=== PATIENT | female | born 1985 ===

== ENCOUNTER 2017-05-15 01:47 | Emergency (ER) | payer SELFPAY ==
[2017-05-15 01:48] VITALS: BMI 34.3
[2017-05-15 01:59] VITALS: BP 148/85; PULSE 108; RESP 17; TEMP 101.3; O2SAT 100
--- NOTE | 2017-05-15 02:12 | ED PDOC ---
HPI: General Adult Time Seen by Provider: 05/15/17 02:10 Chief Complaint (Nursing): Flu-like Symptoms Chief Complaint (Provider): flu-like symptom History Per: Patient (31 y/o female here here with bodyache/fever x 48 hours. Denies uri/cough. Notes pain lower back and abdomen at times.) Past Medical History Reviewed: Historical Data, Nursing Documentation, Vital Signs Vital Signs: Last Vital Signs Temp 101.3 F H 05/15/17 01:57 Pulse 108 H 05/15/17 01:57 Resp 17 05/15/17 01:57 BP 148/85 05/15/17 01:57 Pulse Ox 100 05/15/17 03:43 - Medical History PMH: HTN - Surgical History Surgical History: Cholecystectomy - Family History Family History: States: Unknown Family Hx - Immunization History Hx Tetanus Toxoid Vaccination: No Hx Influenza Vaccination: No Hx Pneumococcal Vaccination: No - Home Medications Home Medications: Ambulatory Orders Medication Instructions Recorded Multivit/Folic Acid/I 1 tab PO DAILY 01/06/16 [ Plus] Vit No.126/Iron/Folic 1 tab PO DAILY 01/08/16 [Prenavite] Ibuprofen [Motrin Tab] 600 mg PO Q6H PRN #30 tab 01/16/16 oxyCODONE/Acetaminophen [Percocet 1 tab PO Q6 PRN #30 tab 01/16/16 5/325 mg Tab] Acetaminophen [Acetaminophen Extra 2 tab PO Q4 PRN #24 tablet 05/15/17 Strength] Ibuprofen [Motrin Tab] 800 mg PO Q8 PRN #21 tab 05/15/17 Oseltamivir [Tamiflu] 75 mg PO BID #9 cap 05/15/17 - Allergies Allergies/Adverse Reactions: Allergies Allergy/AdvReac Type Severity Reaction Status Date / Time No Known Allergies Allergy Verified 01/08/16 20:47 Review of Systems ROS Statement: Except As Marked, All Systems Reviewed And Found Negative Physical Exam - Reviewed Nursing Documentation Reviewed: Yes Vital Signs Reviewed: Yes - Physical Exam Appears: Positive for: Well, Non-toxic, No Acute Distress Head Exam: Positive for: ATRAUMATIC, NORMAL INSPECTION, NORMOCEPHALIC Skin: Positive for: Normal Color, Warm, DRY Eye Exam: Positive for: EOMI, Normal appearance, PERRL ENT: Positive for: Normal ENT Inspection Neck: Positive for: Normal, Painless ROM Cardiovascular/Chest: Positive for: Regular Rate, Rhythm Respiratory: Positive for: CNT, Normal Breath Sounds Gastrointestinal/Abdominal: Positive for: Normal Exam, Bowel Sounds, Soft Back: Positive for: Normal Inspection Extremity: Positive for: Normal ROM Neurologic/Psych: Positive for: Alert, Oriented - Laboratory Results Urine POC: Negative Urine dip results: Positive for: Blood. Negative for: Leukocyte Esterase, Nitrate, Ketones, Glucose, Bilirubin - ECG O2 Sat by Pulse Oximetry: 100 - Progress ED Course And Treament: MOTRIN 800 MG X 1 DOSE TAMIFLU 75 MG X 1 DOSE ACETAMINOPHEN 975 MG X 1 DOSE Disposition - Clinical Impression Clinical Impression: Influenza - Patient ED Disposition Is Patient to be Admitted: No - Disposition Disposition: Routine/Home Disposition Time: 16:00 Condition: FAIR Prescriptions: Acetaminophen [Acetaminophen Extra Strength] 2 tab PO Q4 PRN #24 tablet PRN Reason: Fever >100.4 F Ibuprofen [Motrin Tab] 800 mg PO Q8 PRN #21 tab PRN Reason: Fever >100.4 F Oseltamivir [Tamiflu] 75 mg PO BID #9 cap Instructions: Influenza (ED) Forms: [employer] (Czech), [facility] ED School/Work Excuse Print Language: KOREAN
== END 2017-05-15 04:23 | disposition home or self-care (01) ==
LOC: H.ER 01:47
DX: J11.1 Influenza due to unidentified influenza virus with other respiratory manifestations (principal); I10 Essential (primary) hypertension

== ENCOUNTER 2018-05-03 21:28 | Emergency (ER) | payer SELFPAY ==
[2018-05-03 21:29] VITALS: BMI 34.3
[2018-05-03 21:36] VITALS: RESP 18
[2018-05-03] MEDS ORDERED: Sodium Chloride 0.9% 1,000 ML IV ONE (22:03)
--- NOTE | 2018-05-03 22:34 | ED PDOC ---
HPI: Female Pain Time Seen by Provider: 05/03/18 21:38 Chief Complaint (Nursing): Female Genitourinary Chief Complaint (Provider): Female Genitourinary History Per: Patient, Psych Coordinator (Maranda #[id number]) History/Exam Limitations: no limitations Onset/Duration Of Symptoms: Days (x 3) Current Symptoms Are (Timing): Still Present Quality Of Discomfort: "Pain" Additional Complaint(s): 32 year old female with no significant medical history presents to the ED for evaluation of right sided flank pain radiating to right lower quadrant and right groin for the last three days. Patient also complains of dysuria, hematuria and urinary frequency. She states that she does have a history of UTIs but has never experienced flank pain with UTIs before. No history of kidney stones. Patient last took Tylenol this morning with no relief. Denies fever, nausea, vomiting, diarrhea, sick contacts and bloody stool. PMD: none provided Last Menstral Period: 04/15/2018 Past Medical History Reviewed: Historical Data, Nursing Documentation, Vital Signs Vital Signs: Last Vital Signs Temp 98.2 F 05/03/18 21:33 Pulse 82 05/03/18 21:33 Resp 18 05/03/18 21:33 BP 137/89 05/03/18 21:33 Pulse Ox 99 05/03/18 21:33 - Medical History PMH: HTN - Surgical History Surgical History: Cholecystectomy, - Family History Family History: States: Unknown Family Hx - Social History Current smoker - smoking cessation education provided: No Alcohol: None Drugs: Denies - Home Medications Home Medications: Ambulatory Orders Medication Instructions Recorded Multivit/Folic Acid/I 1 tab PO DAILY 01/06/16 [ Plus] Vit No.126/Iron/Folic 1 tab PO DAILY 01/08/16 [Prenavite] RX: Ibuprofen [Motrin Tab] 600 mg PO Q6H PRN #30 tab 01/16/16 RX: oxyCODONE/Acetaminophen 1 tab PO Q6 PRN #30 tab 01/16/16 [Percocet 5/325 mg Tab] Acetaminophen [Acetaminophen Extra 2 tab PO Q4 PRN #24 tablet 05/15/17 Strength] Ibuprofen [Motrin Tab] 800 mg PO Q8 PRN #21 tab 05/15/17 Oseltamivir Cap [Tamiflu] 75 mg PO BID #9 cap 05/15/17 Acetaminophen [Acetaminophen 8 650 mg PO Q8 PRN #21 tablet.er 05/04/18 Hour] Cefdinir [Omnicef] 300 mg PO BID #14 cap 05/04/18 Phenazopyridine [Pyridium] 200 mg PO BID PRN #4 tab 05/04/18 RX: Naproxen 500 mg PO BID PRN #20 tab 05/04/18 - Allergies Allergies/Adverse Reactions: Allergies Allergy/AdvReac Type Severity Reaction Status Date / Time No Known Allergies Allergy Verified 01/08/16 20:47 Review of Systems ROS Statement: Except As Marked, All Systems Reviewed And Found Negative Constitutional: Negative for: Fever Gastrointestinal: Positive for: Abdominal Pain (right flank pain and RLQ pain). Negative for: Nausea, Vomiting, Diarrhea, Hematochezia Genitourinary Female: Positive for: Dysuria, Frequency, Hematuria Musculoskeletal: Positive for: Leg Pain (flank pain radiating to right leg/groin) Physical Exam - Reviewed Nursing Documentation Reviewed: Yes Vital Signs Reviewed: Yes - Physical Exam Comments: GENERAL APPEARANCE: Patient is awake, alert, oriented x 3; comfortable, in no acute distress. SKIN: Warm, dry; (-) cyanosis. EYES: (-) conjunctival pallor. ENMT: Mucous membranes moist. Airway patent: (-) stridor. NECK: Supple, FROM CHEST AND RESPIRATORY: (-) wheezing; (-) rales, (-) rhonchi, (-) rub; breath sounds equal bilaterally. Respirations nonlabored. HEART AND CARDIOVASCULAR: (-) irregularity ABDOMEN AND GI: Soft; (+) mild RLQ tenderness (-) guarding (-)distention (-) rigidity (?) Right CVA tenderness (-) palpable mass BACK: (+) right flank tenderness, (-) midline tenderness EXTREMITIES: (-) deformity, (-) edema. NEURO AND PSYCH: Mental status as above; (-) focal findings. Gait: steady. Speech: clear. (-) facial asymmetry (-) aphasia - Laboratory Results Result Diagrams: 05/03/18 22:18 05/03/18 22:18 Urine POC: Negative - ECG O2 Sat by Pulse Oximetry: 99 (RA) Pulse Ox Interpretation: Normal Medical Decision Making Medical Decision Makin:40 Impression: abdominal/flank pain, UTI vs pyelonephritis Initial Plan: --CMP --CBC --Urine preg --NS IV --Pyridium 200 mg PO --Toradol 30 mg PO --Urine cx --UA 2320 CBC and CMP unremarkable. U/A (+) UTI Rocephin 1gm IVPB ordered. 0025 On re-evaluation, patient reports improvement of symptoms. On exam, patient remains AAOx3, in no acute distress. Vitals stable. Lab / Diagnostic results d/w the patient in great detail. Diagnosis of abdominal/flank pain, UTI d/w the patient. Based on history, exam and diagnostic results, plan will be for outpatient follow up with PMD/clinic. Patient instructed to follow-up with pmd / referral provided / the clinic in 1- 2 days without fail. Advised to take medication as prescribed. Return to the emergency room at any time for any new or worsening symptoms. Patient states she fully agrees with and understands discharge instructions. States that she agrees with the plan and disposition. Verbalized and repeated discharge instructions and plan. I have given the patient opportunity to ask any additional questions. Scribe Attestation: Documented by Earlene Lau acting as a scribe for Gertrude Angelo PA-C Provider Scribe Attestation: All medical record entries made by the Scribe were at my direction and personally dictated by me. I have reviewed the chart and agree that the record accurately reflects my personal performance of the history, physical exam, medical decision making, and the department course for this patient. I have also personally directed, reviewed, and agree with the discharge instructions and disposition. Disposition - Clinical Impression Clinical Impression: Urinary tract infection, Abdominal pain, Flank pain - Patient ED Disposition Is Patient to be Admitted: No Counseled Patient/Family Regarding: Studies Performed, Diagnosis, Need For Followup, Rx Given - Disposition Referrals: [facility] [Outside] Disposition: Routine/Home Disposition Time: 00:25 Condition: STABLE Additional Instructions: La atencin mdica de emergencia que recibi hoy se dirigi a julio sntomas agud os. Si le recetaron algn medicamento, llnelo y tmelo segn las indicaciones. Los sntomas pueden tardar varios holloway en resolverse. Regrese al Departamento de Emergencias si julio sntomas empeoran, no mejoran o si tiene otros problemas. Comunquese con mcghee mdico dentro de 2 holloway para tamela nueva evaluacin y marguerite un seguimiento o llame a tima de los mdicos / clnicas a los que rivera sido referido y que figuran en el formulario de Informacin de visita al paciente que se incluye en mcghee paquete de dawn. Lleve todos los documentos que le entregaron al momento del dawn junto con todos los medicamentos que est tomando para mcghee visita de seguimiento. Nuestro tratamiento no puede reemplazar la atencin mdica continua por parte de un proveedor de atencin primaria (PCP) fuera del departamento de emergencias. Prescriptions: Acetaminophen [Acetaminophen 8 Hour] 650 mg PO Q8 PRN #21 tablet.er PRN Reason: fever/pain Cefdinir [Omnicef] 300 mg PO BID #14 cap RX: Naproxen 500 mg PO BID PRN #20 tab PRN Reason: Pain, Moderate (4-7) Phenazopyridine [Pyridium] 200 mg PO BID PRN #4 tab PRN Reason: urinary discomfort Instructions: Urinary Tract Infections in Adults, Flank Pain, Acute Abdomen (Belly Pain), Adult (DC), Kidney Infection (DC) Forms: [employer] ([place] Citizen) Print Language: GEORGIAN - POA Present On Arrival: None Results - Lab Results Lab Results: 05/03/18 05/03/18 05/03/18 22:18 22:18 22:18 WBC 8.7 RBC 4.04 Hgb 12.2 Hct 35.5 MCV 87.9 MCH 30.1 MCHC 34.2 RDW 13.5 Plt Count 286 MPV 8.7 Neut % (Auto) 60.7 Lymph % (Auto) 30.8 Pettis % (Auto) 4.8 Eos % (Auto) 3.1 Baso % (Auto) 0.6 Neut # (Auto) 5.3 Lymph # (Auto) 2.7 Pettis # (Auto) 0.4 Eos # (Auto) 0.3 Baso # (Auto) 0.0 Sodium 137 Potassium 3.8 Chloride 104 Carbon Dioxide 22 Anion Gap 15 BUN 16 Creatinine 0.4 L Est GFR ( Amer) > 60 Est GFR (Non-Af Amer) > 60 Random Glucose 96 Calcium 9.4 Total Bilirubin 0.2 AST 18 ALT 14 Alkaline Phosphatase 59 Total Protein 8.0 Albumin 4.5 Globulin 3.5 Albumin/Globulin Ratio 1.3 Urine Color Yellow Urine Clarity Slighty-cloudy Urine pH 6.0 Ur Specific [place] 1.018 Urine Protein Negative Urine Glucose (UA) Neg Urine Ketones Negative Urine Blood Small Urine Nitrate Negative Urine Bilirubin Negative Urine Urobilinogen 0.2-1.0 Ur Leukocyte Esterase Small Urine RBC (Auto) 6 H Urine Microscopic WBC 12 H Ur Squamous Epith Cells 6 H Urine Bacteria Occ H
[2018-05-03 22:56] LABS: BASO % 0.6 % (0.0-2.0); EOS # 0.3 K/uL (0.0-0.7); EOS % 3.1 % (0.0-4.0); HEMOGLOBIN 12.2 g/dL (12.0-16.0); LYMPH # 2.7 K/uL (1.0-4.3); LYMPH % 30.8 % (20.0-40.0); MEAN CELL VOLUME 87.9 fl (81.0-99.0); MEAN CORPUSCULAR HEMOGLOBIN 30.1 pg (27.0-31.0); MEAN CORPUSCULAR HGB CONC 34.2 g/dL (33.0-37.0); MEAN PLATELET VOLUME 8.7 fl (7.2-11.7); MONO # 0.4 K/uL (0.0-0.8); MONO % 4.8 % (0.0-10.0); NEUT # 5.3 K/uL (1.8-7.0); NEUT % 60.7 % (50.0-75.0); NRBC % 0.1 % (0.0-0.0); RBC 4.04 Mil/uL (3.80-5.20); RED CELL DISTRIBUTION WIDTH 13.5 % (11.5-14.5); WHITE BLOOD COUNT 8.7 K/uL (4.8-10.8)
[2018-05-03 23:06] LABS: ALB/GLOB RATIO 1.3 (1.0-2.1); ALBUMIN 4.5 g/dL (3.5-5.0); ALT/SGPT 14 U/L (9-52); AST/SGOT 18 U/L (14-36); BLOOD UREA NITROGEN 16 mg/dl (7-17); CALCIUM 9.4 mg/dL (8.4-10.2); GFR NON-AFRICAN AMERICAN > 60
[2018-05-03 23:10] LABS: SQUAMOUS EPITHIAL 6 /hpf (0-5); URINE BACTERIA OCC (<OCC); URINE BILIRUBIN NEGATIVE (NEGATIVE); URINE BLOOD SMALL (NEGATIVE); URINE CLARITY SLIGHTY-CLOUDY (Clear); URINE COLOR YELLOW (YELLOW); URINE GLUCOSE (UA) NEG (NEGATIVE); URINE LEUKOCYTE ESTERASE SMALL Leu/uL (Negative); URINE PROTEIN NEGATIVE (NEGATIVE); URINE UROBILINOGEN 0.2-1.0 mg/dL (0.2-1.0)
[2018-05-04] MEDS ORDERED: cefTRIAXone (Rocephin) 1 gm Inj ONE (00:16)
[2018-05-04 01:39] VITALS: BP 122/78; PULSE 86; TEMP 98.7
[2018-05-06 23:41] VITALS: O2SAT 99
== END 2018-05-04 01:37 | disposition home or self-care (01) ==
LOC: H.ER 21:28
DX: N39.0 Urinary tract infection, site not specified (principal); R10.31 Right lower quadrant pain
CPT/HCPCS: 80053; 81003; 81025; 85025; 87086; 96360; 96361; 96374; 96375; 99283; J0696; J1885; J7030

== ENCOUNTER 2018-06-29 01:30 | Emergency (ER) | payer OTHER ==
[2018-06-29 02:31] VITALS: BMI 34.0
[2018-06-29 02:40] VITALS: BP 150/99; PULSE 76; RESP 16; TEMP 98.2; O2SAT 99
[2018-06-29] MEDS ORDERED: Naproxen 500 MG TAB PO ONE ×2 (02:42→03:18)
--- NOTE | 2018-06-29 03:16 | ED PDOC ---
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 She states that for the past 2 days she has developed progressively worsening left ear ache. Patient reports she used over the counter ear drops. She denies fever, chest pain, shortness of breath, hemoptysis, sick contact, or recent travel. She reports feeling as if her left ear is clogged but denies any ringing. She denies history of diabetes. Past Medical History Reviewed: Historical Data, Nursing Documentation, Vital Signs Vital Signs: Last Vital Signs Temp 98.2 F 06/29/18 02:31 Pulse 76 06/29/18 02:31 Resp 16 06/29/18 02:31 BP 150/99 H 06/29/18 02:31 Pulse Ox 99 06/29/18 02:31 - Medical History PMH: HTN - Surgical History Surgical History: Cholecystectomy, - Family History Family History: States: Unknown Family Hx - Immunization History Hx Tetanus Toxoid Vaccination: No Hx Influenza Vaccination: No Hx Pneumococcal Vaccination: No - Home Medications Home Medications: Ambulatory Orders Medication Instructions Recorded Multivit/Folic Acid/I 1 tab PO DAILY 01/06/16 [ Plus] Vit No.126/Iron/Folic 1 tab PO DAILY 01/08/16 [Prenavite] Ibuprofen [Motrin Tab] 600 mg PO Q6H PRN #30 tab 01/16/16 oxyCODONE/Acetaminophen [Percocet 1 tab PO Q6 PRN #30 tab 01/16/16 5/325 mg Tab] Acetaminophen [Acetaminophen Extra 2 tab PO Q4 PRN #24 tablet 05/15/17 Strength] Ibuprofen [Motrin Tab] 800 mg PO Q8 PRN #21 tab 05/15/17 Oseltamivir Cap [Tamiflu] 75 mg PO BID #9 cap 05/15/17 Acetaminophen [Acetaminophen 8 650 mg PO Q8 PRN #21 tablet.er 05/04/18 Hour] Cefdinir [Omnicef] 300 mg PO BID #14 cap 05/04/18 Naproxen 500 mg PO BID PRN #20 tab 05/04/18 Phenazopyridine [Pyridium] 200 mg PO BID PRN #4 tab 05/04/18 Amoxicillin 875 mg PO BID #20 tablet 06/29/18 Naproxen [Naprosyn] 500 mg PO BID PRN #10 tab 06/29/18 Neomycin/Polymyxin/Hydrocortis 3 drop TID #1 bottle 06/29/18 [Cortisporin Otic Susp] - Allergies Allergies/Adverse Reactions: Allergies Allergy/AdvReac Type Severity Reaction Status Date / Time No Known Allergies Allergy Verified 01/08/16 20:47 Review of Systems ROS Statement: Except As Marked, All Systems Reviewed And Found Negative Constitutional: Negative for: Fever ENT: Positive for: Ear Pain, Nose Congestion, Throat Pain Cardiovascular: Negative for: Chest Pain Respiratory: Positive for: Cough. Negative for: Shortness of Breath, Hemoptysis Physical Exam - Reviewed Nursing Documentation Reviewed: Yes Vital Signs Reviewed: Yes - Physical Exam Appears: Positive for: No Acute Distress Head Exam: Positive for: ATRAUMATIC, NORMAL INSPECTION, NORMOCEPHALIC Skin: Positive for: Normal Color, Warm, DRY Eye Exam: Positive for: EOMI, Normal appearance, PERRL ENT: Positive for: TM Is/Are (Left TM is erythematous and non-bulging; Right TM is non-erythematous and non-bulging). Negative for: Normal ENT Inspection (Left ear canal has moderate erythema and there is pain with pulling on left tragus; Right ear canal normal), Pharyngeal Erythema, Tonsillar Exudate, Tonsillar Swelling, Other (ear swelling; trismus; difficulty with swallowing saliva) Cardiovascular/Chest: Positive for: Regular Rate, Rhythm. Negative for: Murmur Respiratory: Positive for: Normal Breath Sounds. Negative for: Respiratory Distress Neurological/Psych: Positive for: Awake, Alert, Normal Tone, Oriented (x3). Negative for: Motor/Sensory Deficits - ECG O2 Sat by Pulse Oximetry: 99 (RA) Pulse Ox Interpretation: Normal Medical Decision Making Medical Decision Making: Time: 02:42 Impression: ear pain Initial plan: * Throat culture * Naproxen 500 mg Scribe Attestation: Documented by Matthew Self, acting as a scribe for Tameka Sanders PA-C Provider Scribe Attestation: All medical record entries made by the Scribe were at my direction and personally dictated by me. I have reviewed the chart and agree that the record accurately reflects my personal performance of the history, physical exam, medical decision making, and the department course for this patient. I have also personally directed, reviewed, and agree with the discharge instructions and disposition. Disposition - Clinical Impression Clinical Impression: Otitis media, Otitis externa - Patient ED Disposition Is Patient to be Admitted: No - Disposition Referrals: [facility] [Outside] Disposition: Routine/Home Disposition Time: 02:40 Condition: IMPROVED Additional Instructions: FOLLOW UP WITH YOUR DOCTOR FOR FURTHER EVALUATION RETURN TO ED IMMEDIATELY IF SYMPTOMS WORSEN ADRYAN GUZMAN, thank you for letting us take care of you today. Your provider was Vladislav Hernandez MD and you were treated for EAR AND THROAT PAIN. The emergency medical care you received today was directed at your acute symptoms. If you were prescribed any medication, please fill it and take as directed. It may take several days for your symptoms to resolve. Return to the Emergency Department if your symptoms worsen, do not improve, or if you have any other problems. Please contact your doctor or call one of the physicians/clinics you have been referred to that are listed on the Patient Visit Information form that is included in your discharge packet. Bring any paperwork you were given at discharge with you along with any medications you are taking to your follow up visit. Our treatment cannot replace ongoing medical care by a primary care provider outside of the emergency department. Thank you for allowing the [facility] team to be part of your care today. If you had an X-Ray or CT scan: A Radiologist will review the ED reading if any change in treatment is needed we will contact you. If you had a blood, urine, or wound culture: It will take several days for the results, if any change in treatment is needed we will contact you. If you had an STI test: It will take 48 hours for the results. Please call after 1 week if you have not heard back. Prescriptions: Amoxicillin 875 mg PO BID #20 tablet Naproxen [Naprosyn] 500 mg PO BID PRN #10 tab PRN Reason: Pain Neomycin/Polymyxin/Hydrocortis [Cortisporin Otic Susp] 3 drop TID #1 bottle Instructions: Ear Infections (Otitis Media) (DC), Outer Ear Infection (DC) Print Language: SAMI
== END 2018-06-29 03:20 | disposition home or self-care (01) ==
LOC: H.ER 01:30
DX: H66.90 Otitis media, unspecified, unspecified ear (principal); H60.90 Unspecified otitis externa, unspecified ear; I10 Essential (primary) hypertension

== ENCOUNTER 2018-07-29 18:18 | Emergency (ER) | payer OTHER ==
[2018-07-29 18:20] VITALS: BMI 34.0
--- NOTE | 2018-07-29 20:23 | ED PDOC ---
HPI: Abdomen Time Seen by Provider: 07/29/18 20:10 Chief Complaint (Nursing): Abdominal Pain Chief Complaint (Provider): : abdominal pain History Per: Patient History/Exam Limitations: no limitations Onset/Duration Of Symptoms: Days (2) Current Symptoms Are (Timing): Still Present Location Of Pain/Discomfort: RLQ, Suprapubic Quality Of Discomfort: "Pain" Associated Symptoms: Back Pain Additional Complaint(s): 32 y/o female, approximately 5 weeks , presents for evaluation of right lower back pain x 2 days. Patient states she was doing a lot of house cleaning yesterday and pain started after that; states it radiates to her right buttock and down back of right upper leg. Pain worse when bending forward. Patient also reports lower abdominal pain today with 3 episodes of diarrhea. Denies fever, vomiting, cough, congestion, chest pain, shortness of breath, palpitations, vaginal bleeding/discharge, urinary symptoms. Past Medical History Reviewed: Historical Data, Nursing Documentation, Vital Signs Vital Signs: Last Vital Signs Temp 98.0 F 07/29/18 18:39 Pulse 84 07/29/18 18:39 Resp 19 07/29/18 18:39 BP 140/84 07/29/18 18:39 Pulse Ox 100 07/29/18 18:39 - Medical History PMH: HTN - Surgical History Surgical History: Cholecystectomy, - Family History Family History: States: Unknown Family Hx - Immunization History Hx Tetanus Toxoid Vaccination: No Hx Influenza Vaccination: No Hx Pneumococcal Vaccination: No - Home Medications Home Medications: Ambulatory Orders Medication Instructions Recorded Multivit/Folic Acid/I 1 tab PO DAILY 01/06/16 [ Plus] Vit No.126/Iron/Folic 1 tab PO DAILY 01/08/16 [Prenavite] Ibuprofen [Motrin Tab] 600 mg PO Q6H PRN #30 tab 01/16/16 oxyCODONE/Acetaminophen [Percocet 1 tab PO Q6 PRN #30 tab 01/16/16 5/325 mg Tab] Acetaminophen [Acetaminophen Extra 2 tab PO Q4 PRN #24 tablet 05/15/17 Strength] Ibuprofen [Motrin Tab] 800 mg PO Q8 PRN #21 tab 05/15/17 Oseltamivir Cap [Tamiflu] 75 mg PO BID #9 cap 05/15/17 Acetaminophen [Acetaminophen 8 650 mg PO Q8 PRN #21 tablet.er 05/04/18 Hour] Cefdinir [Omnicef] 300 mg PO BID #14 cap 05/04/18 Naproxen 500 mg PO BID PRN #20 tab 05/04/18 Phenazopyridine [Pyridium] 200 mg PO BID PRN #4 tab 05/04/18 Amoxicillin 875 mg PO BID #20 tablet 06/29/18 Naproxen [Naprosyn] 500 mg PO BID PRN #10 tab 06/29/18 Neomycin/Polymyxin/Hydrocortis 3 drop TID #1 bottle 06/29/18 [Cortisporin Otic Susp] - Allergies Allergies/Adverse Reactions: Allergies Allergy/AdvReac Type Severity Reaction Status Date / Time No Known Allergies Allergy Verified 01/08/16 20:47 Review of Systems ROS Statement: Except As Marked, All Systems Reviewed And Found Negative Gastrointestinal: Positive for: Abdominal Pain Musculoskeletal: Positive for: Back Pain Physical Exam - Reviewed Nursing Documentation Reviewed: Yes Vital Signs Reviewed: Yes - Physical Exam Appears: Positive for: Well, Non-toxic, No Acute Distress Head Exam: Positive for: ATRAUMATIC, NORMAL INSPECTION, NORMOCEPHALIC Skin: Positive for: Normal Color Eye Exam: Positive for: Normal appearance ENT: Positive for: Normal ENT Inspection Cardiovascular/Chest: Positive for: Regular Rate, Rhythm Respiratory: Positive for: Normal Breath Sounds Gastrointestinal/Abdominal: Positive for: Bowel Sounds, Soft, Tenderness (suprapubic, RLQ) Back: Positive for: Muscle Spasm (right lspine paravertebral tenderness, right gluteal tenderness). Negative for: L CVA Tenderness, R CVA Tenderness, Vertebral Tenderness, Decreased ROM Extremity: Positive for: Normal ROM Neurological/Psych: Positive for: Awake, Alert, Oriented (x3) - Laboratory Results Result Diagrams: 07/29/18 20:52 07/29/18 23:00 Urine POC: Positive Urine dip results: Negative for: Leukocyte Esterase - ECG O2 Sat by Pulse Oximetry: 100 - Progress ED Course And Treament: -upreg -udip -cbc -cmp -beta hcg -OB TV u/s History , rt side pain. Comparison None available. Findings Uterus Single live intrauterine gestation. CRL equivalent to 6 wks/0 days gestation Gestational sac diameter equivalent to 6 wks/1 day gestation Heart rate: 116 bpm. Uterus measures 8.8 x 5.3 x 7.6 cm. No mass. Cervix Hypoechoic focus is seen in the cervical area possibly a fibroid measuring 1.3 x 0.6 x 1 cm. Right Ovary Measures 1.9 x 0.8 x 1.8 cm. No mass. Normal flow. Left Ovary Measures 3.3 x 2.5 x 3.3 cm. No mass. Normal flow. Corpus luteal cyst measures 2 x 1.8 x 2.2 cm. Free Fluid None. Other Findings None. Impression 1. Single live intrauterine gestation. 2. Possible cervical fibroid. 3. Left ovarian corpus luteal cyst Patient reports improvement of symptoms on re-eval Patient educated on findings, discharged with instructions to follow up with leach tank tender within 2-3 days Advised Tylenol PRN pain Return precautions given Disposition - Clinical Impression Clinical Impression: Abdominal pain during , Low back pain, Left ovarian cyst, Fibroid - Patient ED Disposition Is Patient to be Admitted: No Counseled Patient/Family Regarding: Studies Performed, Diagnosis, Need For Followup, Rx Given - [facility]position [facility] Disposition: Routine/Home Disposition Time: 23:33 Condition: IMPROVED Instructions: Stomach Pain in Early , Low Back Pain in Adults, Sciatica, Ovarian Cysts, Uterine Fibroids Print Language: BENGALI
[2018-07-29 20:58] LABS: BASO % 0.3 % (0.0-2.0); EOS # 0.1 K/uL (0.0-0.7); EOS % 1.2 % (0.0-4.0); HEMOGLOBIN 11.8 g/dL (12.0-16.0); LYMPH # 2.5 K/uL (1.0-4.3); LYMPH % 34.6 % (20.0-40.0); MEAN CELL VOLUME 86.8 fl (81.0-99.0); MEAN CORPUSCULAR HEMOGLOBIN 28.8 pg (27.0-31.0); MEAN CORPUSCULAR HGB CONC 33.2 g/dL (33.0-37.0); MEAN PLATELET VOLUME 8.2 fl (7.2-11.7); MONO # 0.5 K/uL (0.0-0.8); MONO % 7.1 % (0.0-10.0); NEUT # 4.1 K/uL (1.8-7.0); NEUT % 56.8 % (50.0-75.0); NRBC % 0.1 % (0.0-0.0); RBC 4.11 Mil/uL (3.80-5.20); RED CELL DISTRIBUTION WIDTH 13.5 % (11.5-14.5); WHITE BLOOD COUNT 7.2 K/uL (4.8-10.8)
[2018-07-29 21:47] LABS: SQUAMOUS EPITHIAL 1 /hpf (0-5); URINE AMORPHOUS SEDIMENT RARE /ul (<OCC); URINE BILIRUBIN NEGATIVE (NEGATIVE); URINE BLOOD NEGATIVE (NEGATIVE); URINE CLARITY SLIGHTY-CLOUDY (Clear); URINE COLOR YELLOW (YELLOW); URINE GLUCOSE (UA) NEG (NEGATIVE); URINE LEUKOCYTE ESTERASE NEG Leu/uL (Negative); URINE PROTEIN NEGATIVE (NEGATIVE); URINE UROBILINOGEN 0.2-1.0 mg/dL (0.2-1.0)
[2018-07-29 23:11] LABS: ALB/GLOB RATIO 1.3 (1.0-2.1); ALBUMIN 4.4 g/dL (3.5-5.0); ALT/SGPT 22 U/L (9-52); AST/SGOT 53 U/L (14-36); BLOOD UREA NITROGEN 14 mg/dl (7-17); CALCIUM 9.6 mg/dL (8.4-10.2); GFR NON-AFRICAN AMERICAN > 60
[2018-07-29 23:49] VITALS: BP 123/71; PULSE 77; RESP 16; O2SAT 99
[2018-07-29 23:56] VITALS: TEMP 98.2
--- NOTE | 2018-07-30 12:22 | US ---
Date of service: 07/29/2018 PROCEDURE: OB Pelvic Ultrasound HISTORY: ; pelvic pain 06/15/2018 COMPARISON: None available. FINDINGS: UTERUS: Gestational sac: Sac diameter 17 mm equal to 6 weeks 1 day gestational age. [place]-rump length 3 mm equivalent to 6 weeks 0 days gestational age. Heart rate: 116 bpm. age (Ultrasound estimated): 6 weeks 1 day [place]-gestational hemorrhage: None. Date of delivery (Ultrasound estimated) : 03/23/2019 Uterus measures 8.8 x 5.3 x 7.6 cm. Normal in size and appearance. CERVIX: Measures 3.9 cm. Long and closed. Cervical myoma versus complex nabothian cyst in the cervix, 1.8 x 2.0 x 2.2 cm.. RIGHT OVARY: Measures 0.8 x 1.8 x 1.9 cm. No mass lesion. Normal flow. LEFT OVARY: Measures 2.5 x 3.3 x 3.3 cm. No solid mass. Normal flow. Corpus luteum cyst, 1.8 x 2.0 x 2.2 cm. FREE FLUID: None. OTHER FINDINGS: None. IMPRESSION: Single live intrauterine gestation of approximately 6 weeks 1 day gestational age. ILSA 03/23/2019. heart rate 116 beats per minute. Small cervical myoma versus complex nabothian cyst of the cervix. Left ovarian corpus luteum. The preliminary findings for this examination were reported by [facility] at 10:03 p.m. on 07/29/2018. There is concurrence of this report with the preliminary findings.
== END 2018-07-29 23:58 | disposition home or self-care (01) ==
LOC: H.ER 18:18 → SUPCPDRO 18:18 → H.ER 23:58
DX: O26.891 Other specified pregnancy related conditions, first trimester (principal); O34.80 Maternal care for other abnormalities of pelvic organs, unspecified trimester; N83.202 Unspecified ovarian cyst, left side; O34.10 Maternal care for benign tumor of corpus uteri, unspecified trimester; O16.1 Unspecified maternal hypertension, first trimester; Z3A.01 Less than 8 weeks gestation of pregnancy

== ENCOUNTER 2018-09-06 13:11 | Emergency (ER) | payer SELFPAY ==
[2018-09-06 13:12] VITALS: BMI 34.0
[2018-09-06] MEDS ORDERED: Sodium Chloride 0.9% 1,000 ML IV STA (14:34)
[2018-09-06] MEDS ORDERED: Alum-Mag Hydrox-Simethicone Susp (30 mL) PO ONE (14:37)
--- NOTE | 2018-09-06 14:55 | ED PDOC ---
HPI: Abdomen Time Seen by Provider: 09/06/18 13:26 Chief Complaint (Nursing): Abdominal Pain Chief Complaint (Provider): abdominal pain History Per: Patient History/Exam Limitations: no limitations Additional Complaint(s): 32 y/o Female with hx of cholecystectomy who is currently 11 weeks and who presents with abdominal pain. Pt states that she has been having Right lower back pain that radiates to her Right lower abdomen and down her Right leg for the past several weeks that has been intermittent. She last took Tylenol 650mg at 8am this morning with minimal improvement. She has also been having epigastric pain for the past several weeks that worsened yesterday and has had 3 bouts of N/V since this morning. Denies fever, chills, diarrhea. She has been concerned that she has not felt her baby move yet. Denies dysuria, urinary frequency, vaginal bleeding or discharge. Past Medical History Reviewed: Historical Data, Nursing Documentation, Vital Signs Vital Signs: Last Vital Signs Temp 98.2 F 09/06/18 14:00 Pulse 90 09/06/18 14:00 Resp 20 09/06/18 14:00 BP 129/80 09/06/18 14:00 Pulse Ox 98 09/06/18 14:00 Primary Care Provider: FAMILY PROVIDER,NO - Medical History PMH: HTN - Surgical History Surgical History: Cholecystectomy, - Family History Family History: States: Unknown Family Hx - Immunization History Hx Tetanus Toxoid Vaccination: No Hx Influenza Vaccination: No Hx Pneumococcal Vaccination: No - Home Medications Home Medications: Ambulatory Orders Medication Instructions Recorded Multivit/Folic Acid/I 1 tab PO DAILY 01/06/16 [ Plus] Vit No.126/Iron/Folic 1 tab PO DAILY 01/08/16 [Prenavite] Ibuprofen [Motrin Tab] 600 mg PO Q6H PRN #30 tab 01/16/16 oxyCODONE/Acetaminophen [Percocet 1 tab PO Q6 PRN #30 tab 01/16/16 5/325 mg Tab] Acetaminophen [Acetaminophen Extra 2 tab PO Q4 PRN #24 tablet 05/15/17 Strength] Ibuprofen [Motrin Tab] 800 mg PO Q8 PRN #21 tab 05/15/17 Oseltamivir Cap [Tamiflu] 75 mg PO BID #9 cap 05/15/17 Acetaminophen [Acetaminophen 8 650 mg PO Q8 PRN #21 tablet.er 05/04/18 Hour] Cefdinir [Omnicef] 300 mg PO BID #14 cap 05/04/18 Naproxen 500 mg PO BID PRN #20 tab 05/04/18 Phenazopyridine [Pyridium] 200 mg PO BID PRN #4 tab 05/04/18 Amoxicillin 875 mg PO BID #20 tablet 06/29/18 Naproxen [Naprosyn] 500 mg PO BID PRN #10 tab 06/29/18 Neomycin/Polymyxin/Hydrocortis 3 drop TID #1 bottle 06/29/18 [Cortisporin Otic Susp] Calcium Carbonate [Tums] 2 tab PO Q4H PRN 14 Days ctb 09/06/18 Hydrocortisone 1% Cream [Cortizone 1 appl TP BID PRN #1 tube 09/06/18 1% Cream] - Allergies Allergies/Adverse Reactions: Allergies Allergy/AdvReac Type Severity Reaction Status Date / Time No Known Allergies Allergy Verified 01/08/16 20:47 Review of Systems Constitutional: Negative for: Fever, Chills Gastrointestinal: Positive for: Nausea, Vomiting, Abdominal Pain. Negative for: Diarrhea, Constipation Genitourinary Female: Negative for: Dysuria, Frequency Physical Exam - Reviewed Nursing Documentation Reviewed: Yes Vital Signs Reviewed: Yes - Physical Exam Appears: Positive for: Uncomfortable Skin: Positive for: Rash (2 mild scaling, erythematous macular rash on B/L anterior shins, + pruritic. No excoriations/tunneling/bleeding noted. ) Cardiovascular/Chest: Positive for: Regular Rate, Rhythm Respiratory: Positive for: Normal Breath Sounds Gastrointestinal/Abdominal: Positive for: Soft, Tenderness (Epigastric and RLQ tenderness on palpation. ). Negative for: Distended, Guarding, Rebound Lymphatic: Positive for: Normal Exam Neurological/Psych: Positive for: Awake, Alert, Oriented - Laboratory Results Result Diagrams: 09/06/18 15:00 09/06/18 15:00 - ECG O2 Sat by Pulse Oximetry: 98 Medical Decision Making Medical Decision Making: CBC, CMP, lipase NS 1L IV x 1 Pepcid 20mg IV x 1 Maalox 30mL PO x 1 16:40: re-evaluated: epigastric abdominal pain has improved significantly as well as RLQ pain has improved but persists. OB limited U/S ordered to assess fetus. US Findings Uterus Single live intrauterine gestation. CRL equivalent to 12 wks/0 days gestation Gestational sac diameter equivalent to 11 wks/4 days gestation Heart rate: 150 bpm. Uterus measures 12.9 x 7.9 x 11.7 cm. No mass. Cervix Long and closed measuring 5.4 cm. No cervical abnormality seen. Right Ovary Measures 2.2 x 1.2 x 2.2 cm. No mass. Normal flow. Left Ovary Measures 4.1 x 3.6 x 3.4 cm. No mass. Normal flow. Corpus luteal cyst measures 2.6 x 1.9 x 2.2 cm. Free Fluid None. Other Findings None. Impression 1. Single live intrauterine gestation. 2. Left ovarian corpus luteal cyst. 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 Return to ER if you develop fevers or worsening abdominal pain. Use topical hydrocortisone cream twice daily for rash on legs for the next 5 days. Prescriptions: Calcium Carbonate [Tums] 2 tab PO Q4H PRN 14 Days ctb PRN Reason: Heartburn Hydrocortisone 1% Cream [Cortizone 1% Cream] 1 appl TP BID PRN #1 tube PRN Reason: Rash Instructions: Sciatica (DC), Gastritis (DC), Sciatica Exercises Forms: [employer] ([place]an) Print Language: MALAWIAN
[2018-09-06 15:20] LABS: SQUAMOUS EPITHIAL 2 /hpf (0-5); URINE BILIRUBIN NEGATIVE (NEGATIVE); URINE BLOOD NEGATIVE (NEGATIVE); URINE CLARITY CLEAR (Clear); URINE COLOR COLORLESS (YELLOW); URINE GLUCOSE (UA) NEG (NEGATIVE); URINE LEUKOCYTE ESTERASE NEG Leu/uL (Negative); URINE PROTEIN NEGATIVE (NEGATIVE); URINE UROBILINOGEN 0.2-1.0 mg/dL (0.2-1.0)
[2018-09-06 15:22] LABS: BASO % 0.3 % (0.0-2.0); EOS # 0.2 K/uL (0.0-0.7); EOS % 2.1 % (0.0-4.0); HEMOGLOBIN 11.1 g/dL (12.0-16.0); LYMPH # 2.4 K/uL (1.0-4.3); LYMPH % 28.2 % (20.0-40.0); MEAN CELL VOLUME 86.1 fl (81.0-99.0); MEAN CORPUSCULAR HEMOGLOBIN 29.8 pg (27.0-31.0); MEAN CORPUSCULAR HGB CONC 34.6 g/dL (33.0-37.0); MEAN PLATELET VOLUME 8.4 fl (7.2-11.7); MONO # 0.6 K/uL (0.0-0.8); MONO % 6.9 % (0.0-10.0); NEUT # 5.4 K/uL (1.8-7.0); NEUT % 62.5 % (50.0-75.0); RBC 3.71 Mil/uL (3.80-5.20); RED CELL DISTRIBUTION WIDTH 13.3 % (11.5-14.5); WHITE BLOOD COUNT 8.6 K/uL (4.8-10.8)
[2018-09-06] MEDS ORDERED: Alum-Mag Hydrox-Simethicone Susp (30 mL) ONE (15:22)
[2018-09-06 15:57] LABS: ALB/GLOB RATIO 1.3 (1.0-2.1); ALBUMIN 3.9 g/dL (3.5-5.0); ALT/SGPT 14 U/L (9-52); AST/SGOT 20 U/L (14-36); BLOOD UREA NITROGEN 10 mg/dl (7-17); CALCIUM 9.1 mg/dL (8.4-10.2); GFR NON-AFRICAN AMERICAN > 60; LIPASE 50 U/L (23-300)
[2018-09-06 20:00] VITALS: BP 130/82; PULSE 71; RESP 16; TEMP 98; O2SAT 100
--- NOTE | 2018-09-07 08:18 | US ---
Date of service: 09/06/2018 PROCEDURE: Obstetrical ultrasound, limited HISTORY: RLQ abd pain, eval preg COMPARISON: 07/29/2018 TECHNIQUE: Standard protocol for this study/examination. FINDINGS: LMP: 06/15/2018 Prior examinations from the current : 07/29/2018 TECHNIQUE: Real-time 2D imaging, duplex and color Doppler. FINDINGS: Cardiac activity: Present Rate: 150 BPM Measurements: [place] rump length: 5.31 cm Gestational age based on CRL 12 weeks Gestational age 11 weeks 4 days based on gestational sac measurement 5.60 cm Gestational age derived from LMP: 11 weeks 6 days ILSA based on LMP: 03/22/2019 ILSA based on biometry: 03/22/2019 Gestational concordance documented Yolk sac not identified Cervix: No Cervical abnormalities: Negative examination for cervical dilatation or effacement. Closed cervix measuring 5.37 cm Subchorionic hemorrhage: None UTERUS: 7.9 x 11.7 x 12.9 cm. ADNEXA: Right: 1.2 x 2.2 x 2.2 cm. Normal Doppler arterial waveform documented. Left: 3.4 x 3.6 x 4.1 cm. Cyst presumed corpus luteum 1.9 x 2.2 x 2.6 cm. Normal Doppler arterial waveform documented Fluid in the cul-de-sac: None IMPRESSION: Eleven weeks 6 days live intrauterine gestation. Adequate interval progression compared to the prior study. No significant or acute findings to account for/ related to the clinical presentation. Concordant findings (preliminary report) provided by [facility].
== END 2018-09-06 19:58 | disposition home or self-care (01) ==
LOC: H.ER 13:11
DX: O26.91 Pregnancy related conditions, unspecified, first trimester (principal); K29.70 Gastritis, unspecified, without bleeding; I10 Essential (primary) hypertension; M54.30 Sciatica, unspecified side; Z3A.11 11 weeks gestation of pregnancy
CPT/HCPCS: 76815; 80053; 81003; 83690; 85025; 87086; 96374; 96375; 99284; J2405; J7030